=== PATIENT | female | born 1930 | race Caucasian/White ===

== ENCOUNTER → 2019-08-01 | Outpatient (CLI) | payer MEDICARE, MEDICAID ==
[~2019-08-01] MED LIST: ARIM1TAB5 PO; ASPI81CH33 PO; ATOR40TA75 PO; BACITAB PO; DOCU10CA PO; FOSA70TA PO; IBUP-1022 PO; LEVO137T2 PO; LISI10TA4 PO; META28.35 PO; MICR12.5 PO; MIRA3350 PO; NEUR100C PO; OS-CTAB6 PO; PROTPAK PO; SENO8.6T5 PO; TYLE325T5 PO
--- NOTE | 2019-08-01 16:28 | REP ---
COOKIE SWALLOW The procedure was performed under the direct supervision of Dr. Stapleton. The procedure was performed with Ese Cueva from speech pathology present. 5 ml aliquots of thin, pudding, soft solid, mixed fruit and solid consistency barium as well as a crushed pill were administered. There is no evidence of penetration or aspiration. The detailed report of this examination will be provided by speech pathology. 2 minutes of fluoroscopy time was utilized for this procedure. Reviewed by ROBIN Middleton 08/01/2019 03:40 P Electronically Signed by Lucius Stapleton MD 08/01/2019 04:19 P
== END ==
LOC: M ST 11:52
PROVIDERS: ATTEND Family Medicine
DX: R13.10 Dysphagia, unspecified (principal)